=== PATIENT | male | born 1965 | race Caucasian/White ===

== ENCOUNTER 2020-07-21 11:20 | Inpatient (IN) | payer OTHER, SELFPAY ==
[~2020-07-21] VITALS: Ht 177.8 cm; Wt 86.6 kg
[2020-07-21 11:26] VITALS: BP 142/78
--- NOTE | 2020-07-21 11:45 | NUR ---
BLOOD CULTURES AND BINU SWAB COLLECTED, WALKED TO LAB AND LEFT WITH PÉREZ
--- NOTE | 2020-07-21 11:50 | NUR ---
54 Y/O M BIB SELF C/O SHORTNESS OF BREATH X 3 DAYS. PT STATED HE TESTED (+) COVID ON 07/10 AND WAS RECOMMENDED BY HIS PRIMARY CARE DOCTOR TO GET SEEN AT THE ER. PT STATES AT 1030AM 07/21, THE SHORTNESS OF BREATH WORSEN. PT ALSO STATES 8/10 HEADACHE X 2 DAYS THAT IS PUSHING/DULL, CONSTANT. PT DENIES COUGH, CHEST PAIN, FEVER, CHILLS, DIZZINESS. LUNG SOUNDS CLEAR BILATERALLY. PT PLACED IN POSITION OF COMFORT, BED LOCKED AT LOWEST POSITION AND SIDE RAILS X2. CALL LIGHT WITHIN REACH. PMH: DENIES NKA MEDS: DENIES SX: DENIES
--- NOTE | 2020-07-21 12:20 | NUR ---
ERMD AT BEDSIDE
[2020-07-21] MEDS ORDERED: KETOROLAC 30 MG/ML VIAL IVP ONE (12:25)
[2020-07-21 12:27] LABS: BASOPHILS % (AUTO) 0.1 % (0.0-2.0); EOSINOPHILS % (AUTO) 0.4 % (0.0-4.0); HEMATOCRIT 45.6 % (36-52); HEMOGLOBIN 15.6 g/dL (12.0-18.0); LYMPHOCYTES # (AUTO) 0.8 K/uL (2.0-11.5); LYMPHOCYTES % (AUTO) 9.4 % (20.5-51.1); MEAN CORPUSCULAR HEMOGLOBIN 30 pg (27-31); MEAN CORPUSCULAR HGB CONC 34 g/dL (33-37); MEAN CORPUSCULAR VOLUME 88.6 fL (80-94); MONOCYTES # (AUTO) 0.4 K/uL (0.8-1.0); NEUTROPHILS # (AUTO) 7.1 K/uL (1.8-7.7); NEUTROPHILS % (AUTO) 85.1 % (42.2-75.2); PLATELET COUNT (AUTO) 366 K/uL (140-450); RED BLOOD CELL COUNT(AUTO) 5.15 MIL/uL (4.20-6.10); RED CELL DISTRIBUTION WIDTH 12.8 % (11.6-13.7); WHITE BLOOD COUNT (AUTO) 8.4 K/uL (4.8-10.8)
[2020-07-21] MEDS ORDERED: NACL 0.9% 1,000 ML IV ONE (12:30)
[2020-07-21 12:48] LABS: ALBUMIN 2.5 g/dL (3.4-5.0); ANION GAP 16.5 (8-16); CARBON DIOXIDE 25.9 mmol/L (21-32); POTASSIUM 3.4 mmol/L (3.5-5.1); TOTAL BILIRUBIN 1.2 mg/dL (0.0-1.0)
--- NOTE | 2020-07-21 13:00 | NUR ---
PT RESTING IN BED WITH NO OBVIOUS DISTRESS. PT PROVIDED WITH WATER CUP. EQUAL CHEST RISE AND FALL. VSS. BED LOCKED AT LOWEST POSITION WITH SIDE RAILS X2. CALL LIGHT WITHIN REACH AND NOTIFIED TO UTILIZE IF SOB WORSENS.
[2020-07-21] MEDS ORDERED: ONDANSETRON 4 MG/2 ML VIAL IM/IVP PRN (13:25)
[2020-07-21] MEDS ORDERED: guaiFENesin DM 200/20 MG-10 ML 10 ML UDC PO PRN (13:25)
[2020-07-21] MEDS ORDERED: HYDROcodone/APAP 7.5/325 MG 1 TAB PO PRN (13:25)
[2020-07-21] MEDS ORDERED: ACETAMINOPHEN 325 MG TAB PO PRN (13:25)
[2020-07-21] MEDS ORDERED: ALBUTEROL HFA MDI 90 MCG/ACTUATION 8 GM INH PRN (13:25)
[2020-07-21] MEDS ORDERED: POTASSIUM CHLORIDE 10 MEQ TABER PO PRN (13:25)
--- NOTE | 2020-07-21 14:00 | NUR ---
URINAL PROVIDED AT BEDSIDE PER PATIENT REQUEST
[2020-07-21 14:01] LABS: PROTHROMBIN TIME 10.9 secs (10.8-13.4)
[2020-07-21 14:05] LABS: CHOL/HDL RATIO 5.4 (1-4.5); FREE T4 (FREE THYROXINE) 1.63 ng/dL (0.76-1.46); MAGNESIUM 2.5 mg/dL (1.8-2.4); PHOSPHORUS 2.3 mg/dL (2.5-4.9); THYROID STIMULATING HORMONE 0.46 uIU/mL (0.34-3.74)
[2020-07-21] MEDS ORDERED: cefTRIAXone 1,000 MG VIAL ONE (15:05)
[2020-07-21] MEDS: NACL 0.9% 1,000 ML IV SCH (15:10)
--- NOTE | 2020-07-21 15:45 | NUR ---
MRSA SWAB AND URINE COLLECTED AND WALKED TO LAB. LEFT WITH MARIE LUNSFORD TECH
--- NOTE | 2020-07-21 15:52 | NUR ---
ARASELI MACK: FAXED ORDER FOR HOME O2 TO [facility] [phone] FAX [phone]. SPOKE TO ROGERS AT [facility] SHE IS WORKING ON THE ORDER AND THE HOME O2 WILL BE DELIVERED TODAY. Addendum: 07/21/20 at 1708 by Yuli Griffin CM ARASELI MACK: FOLLOWED UP WITH [facility] [phone] THEY WERE NOT ABLE TO GET IN CONTACT WITH THE SHEET CUTTING OPERATOR PROVIDED THEM WITH THE ED NUMBER. Addendum: 07/21/20 at 170 by Yuli Griffin CM ARASELI MACK: NOTIFIED ED Addendum: 07/22/20 at 1234 by Yuli Griffin CM ARASELI DUNLAPNER: RECEIVED VOICEMAIL THAT [facility] COULD NOT PROVIDE OXYGEN FOR PATIENT DUE LIMITED AMOUNT. CONTACTED [facility], [facility], AND [facility] THEY ARE ALL NOT CONTRACTED WITH PATIENTS INSURANCE Addendum: 07/26/20 at 1405 by Yuli Griffin CM ARASELI MACK: SPOKE TO PENNIE FROM [facility] THIS PATIENTS INSURANCE UNFORTUNATELY DOES NOT COVER THE EXPENSES FOR HOME O2. THIS WILL HAVE TO BE HAHN PAY. SPOKE TO PATIENTS SHE IS GOING TO TALK TO DISCUSS WITH HER AND CONTACT ME BACK. Addendum: 07/26/20 at 1433 by Yuli Griffin CM ARASELI COMBER SETTER: SPOKE TO PATIENTS HEIDI BERTRAND [phone] SHE AND HER CAN NOT PAY OUT OF POCKET AT THIS TIME FOR THE HOME O2. SHE STATED THAT HERSELF AND BOTH ARE NOT WORKING NOW. Addendum: 07/26/20 at 1630 by Lyudmila Carter CM CONTACTED [facility] AT [phone], OPT2 OPT 2, EVERY TIME GETS TRANSFERRED TO A LIVE AGENT THE CALL GOT CUT OFF X4. CONTACTED [facility] AGAIN AT [phone] OPT 2 OPT 2, TRANSFERRED TO [facility], ABLE TO SPEAK TO FERMÍN, HE STATED HE HAS TO TRANSFER ME TO BENEFITS. GOT TRANSFERRED AND CALL GOT CUT OFF AGAIN. CONTACTED [facility] AGAIN, ABLE TO TO SPEAK TO BECKY Watts, PROVIDED HIM OF ALL INFORMATION NEEDED. HE STATED BEFORE THEY COULD START THE PROCESS THEY NEED THE CPT CODE AND DIAGNOSIS FOR O2. PROVIDED HIM OF THE CODES, HE STATED THERE WILL BE NO NEED FOR PRIOR AUTH IF COSTS IS NOT MORE THAN $500. I ASKED HIM IF THEY HAVE A CONTRACTED [employer] SO I CAN SEND THE REQUEST. HE STATED WITH THAT HE NEEDS TO TRANSFER ME TO BENEFITS. INFORMED HIM THAT I CALLED SO MANY TIMES AND THE CALLS HAD BEEN DROPPED. HE STATED HE WILL TRANSFER ME TO A LIVE AGENT WHICH THE CALL GOT DROPPED AGAIN. CONTACTED [facility] AGAIN, ABLE TO SPEAK TO GRIS ESTHELA, SHE STATED THERE IS NO PRE CERTIFICATION FOR 02 IS THE COST FOR RENTAL IS $500 OR LESS. I ASKED HER IF THE PLAN COVERS THE O2 SHE STATED SHE HAS TO TRANSFER ME TO BENEFITS. INFORMED HER THAT I HAD TRY DOING THAT FOR 6X AND THE CALL GET DROPPED ALL THE TIME. SHE STATED SHE WILL TRANSFER ME TO A LIVE AGENT AND HAVE BEEN ON HOLD FOR 49 MINS AND 50 SEC AND THE CALL DROPPED. Addendum: 07/27/20 at 0832 by Lyudmila Carter CM SPOKE TO RT GRACIA REGARDING O2 TITRATION, SHE STATED SHE WILL RELAY THE MESSAGE TO RT MARTIN AND RT STEPHEN. WILL FOLLOW UP. Addendum: 07/27/20 at 1138 by Lyudmila Carter CM 0830: CONTACTED [facility] AT [phone], ABLE TO SPEAK TO BELL LUU PROVIDED ME OF THE NUMBER [phone] CALL FOR BENEFITS. CONTACTED THE PROVIDED NUMBER, ABLE TO SPEAK BRANDI. PER BRANDI, PATIENT IS COVERED 90% FOR O2. HE ALSO STATED THAT THEY ARE CONTRACTED WITH [facility], [facility]. CONTACTED [facility] AT [phone], ABLE TO SPEAK TO BRICE. PER BRICE TO GO AHEAD AND SEND REFERRAL TO [phone] FOR THEM TO RUN ELIGIBILITY. CONTACTED TAMIE OF [facility] [employer] [employer] [facility] AT [phone]. PER TAMIE THEY ARE CONTRACTED WITH [facility] BUT DEPENDING ON THE GROUP NUMBER. PROVIDED HER WITH THE GROUP NUMBER AND SHE STATED PROBABLY NOT HOWEVER REQUESTED TO SEND IT TO [phone] FOR THEM TO DOUBLE CHECK ELIGIBILITY. ORDER SENT TO [facility] AND [facility]. 1114: RECEIVED A CALL FROM BRICE OF [facility], STATING THEY ARE NOT ABLE TO PROVIDE TO THIS PATIENT DUE TO IT WAS NOT CAPITATED. Addendum: 07/27/20 at 1217 by Lyudmila Carter CM PER LAURA [phone] OF [facility] [employer], THEY ARE NOT CONTRACTED WITH [facility]. PER SULTANA [phone] OF [facility] [place], THEY ARE NOT CONTRACTED WITH [facility]. PER SHELLI [phone] OF [employer] [place], THEY ARE NOT CONTRACTED WITH [facility]. REFERRAL SENT TO [facility] [phone]. WILL FOLLOW UP. Addendum: 07/27/20 at 1230 by Lyudmila Carter CM PER MELISSA [phone] SONU OJEDA, THEY ARE NOT DOING NELA AT THIS TIME BUT WILL CLARIFY THIS WITH MANAGEMENT AND WILL CALL ME BACK. Addendum: 07/27/20 at 1308 by Lyudmila Carter CM PER JACQUE, THEY ARE NOT ABLE TO PROVIDE OXYGEN FOR THE PATIENT DUE TO PLAN IS NOT CAPITATED WITH THEM. Addendum: 07/27/20 at 1318 by Lyudmila Carter PER [facility], THEY CAN ONLY DO NELA (GOOD FOR 3 MONTHS) FOR SENIORS ONLY WITH QUALIFYING SATS. Addendum: 07/27/20 at 1321 by Lyudmila Carter PER [facility]IS[facility], THEY CAN ONLY DO NELA WITH SENIOR PATIENTS WITH QUALIFYING SATS OF 88% AND BELOW AND ONLY FOR 3 MONTHS. Addendum: 07/27/20 at 1337 by Lyudmila Carter PER AARON ARNOLD, PATIENT DE-SATTED TO 88-89% AND PLACED PATIENT BACK TO O2 AT 6 LPM/NC. Addendum: 07/27/20 at 1338 by Lyudmila Carter CM O2 SAT WENT UP TO 92% ON 6 LPM. Addendum: 07/27/20 at 1358 by Lyudmila Carter CM PER [facility] AT [phone], BECAUSE PATIENT LIVES IN [place] THIS WILL BE UNDER THEIR [facility] HOWEVER HE WILL FIND OUT WHAT IS THE STATUS OF THE REQUEST. I WAS PLACED ON HOLD AND THE CALL GOT DROPPED. CONTACTED [facility] AGAIN, CALL GOT CUT OFF AGAIN. WILL FOLLOW UP. Addendum: 07/27/20 at 1405 by Yuli Griffin CM ARASELI MACK: FOLLOWED UP WITH [facility] LOCATION [phone]. SHE STATED THAT THEY DIDN'T RECEIVE THE ORDER BECAUSE IT WAS FAXED TO THEIR [place] LOCATION. FAXED TO CORRECT NUMBER [phone] Addendum: 07/27/20 at 1520 by Yuli Griffin CM ARASELI MACK: RECEIVED A CALL BACK FROM NASH FROM [facility] THEY ARE NOT ABLE TO PROVIDE OXYGEN FOR THIS PATIENT BECAUSE OF THE INCREASE OF ORDERS FOR OXYGEN AND THEY ARE NOT CONTRACTED WELL. Addendum: 07/27/20 at 1626 by Sindhu Garces CM DC Planning: MELVIN contacted [phone]) MELVIN spoke to Leisa; MELVIN alerted Leisa of the difficulties in finding an accepting oxygen supplier. Leisa suggested that MELVIN got to [employer] and look up contracted providers. MELVIN printed list of DME providers and gave list to DC program planner. MELVIN alerted Leisa that several of the companies on the list had already alerted that they are not contracted with pt's insurance. Leisa stated that it would be "patient's responsibility if there are no contracted providers to provide pt with oxygen". Leisa also stated that if the hospital found a non-contracted provider to supply the oxygen the pt could call the insurance to see if they would provide the oxygen company with a approval for the oxygen. Leisa states that the pt could submit an appeal due to no participating provider able to supply the oxygen. MELVIN will update CHYNA/DC program planner. Addendum: 07/28/20 at 1046 by Yuli Griffin CM DC COMBER SETTER: CONTACTED THE DME COMPANIES THAT WAS PROVIDED TO ME BY MELVIN. [employer], [employer], [employer], [employer], [employer], AND [facility]. THESE PROVIDERS CAN NOT PROVIDE OXYGEN FOR THIS PATIENT. Addendum: 07/28/20 at 1049 by Yuli Griffin CM ARASELI MACK: RECEIVED A CALL FROM PATIENTS LAST NIGHT REGARDING CONCERNS OF THE CARE OF HER . SHE STATED THAT SHE HAS BEEN SITTING AT THE WINDOW AND NO ONE HAS CAME TO CHECK UP ON HER AND SHE WAS CONCERNED THAT HE DID NOT HAVE ANY OXYGEN AT THE TIME. I NOTIFIED HER THAT I WILL RELAY THE MESSAGE TO PATIENTS AARON BRICENO. CALLED RN TO NOTIFY HIM. PATIENTS ALSO STATED THAT THEY ARE STILL NOT ABLE TO PAY FOR THE HOME O2 AND SHE DOES NOT WANT HER DISCHARGED UNTIL HE NO LONGER NEEDS OXYGEN. Addendum: 07/29/20 at 1413 by Michelle Ayala RN DC PLANNING: RECEIVED A CALL FROM PT'S DAUGHTER [phone] SPOKE WITH KAT REGARDING DISCHARGE HOME AND EXPLAINED PT IS SATING 93% WITH ROOM AIR , PT IS VERY ANXIOUS AND WORRIED THAT HIS O2 SAT MIGHT DROP AND NEEDS HOME O2. PER DAUGHTER WILLING TO PAY FOR HOME O2 CONTACTED [facility] SPOKE WITH PENNIE , DAUGHTER PAID AND WILL BE DELIVERED AT HOME. ONCE IT DELIVERED PT'S WILL BRING THE O2 TO THE HOSPITAL. CM TO FOLLOW
[2020-07-21 16:03] LABS: APPEARANCE,URINE CLEAR (CLEAR); BILIRUBIN,URINE 2+ (NEGATIVE); BLOOD, URINE NEGATIVE (NEGATIVE); COLOR,URINE DARK YELLOW (YELLOW); LEUKOCYTE ESTERASE ,URINE NEGATIVE (NEGATIVE); NITRITE, URINE NEGATIVE (NEGATIVE); UGLUCOSE TRACE (NEGATIVE)
[2020-07-21 16:18] LABS: BARBITURATE, URINE NEGATIVE ng/ml (NEG <=200); BENZODIAZEPINE, URINE NEGATIVE ng/mL (NEG <=200); CANNABINOID, URINE NEGATIVE ng/mL (NEG <=50); COCAINE, URINE NEGATIVE ng/mL (NEG <=300); OPIATE, URINE NEGATIVE ng/mL (NEG <=2000); PHENCYCLIDINE SCREEN,URINE NEGATIVE ng/mL (NEG <=25)
[2020-07-21] MEDS ORDERED: REMDESIVIR (EUA) 200 MG in NACL 0.9% 100 ML IV SCH (17:00)
[2020-07-21] MEDS ORDERED: remdesivir CLINICAL MONITORING 1 EA MISC MC PRN (17:00)
[2020-07-21 17:02] LABS: COARSE GRANULAR CASTS,URINE 0-10 /LPF (None Seen); RBC,URINE 0-5 /HPF (0-5); WBC,URINE 0-5 /HPF (0-5)
--- NOTE | 2020-07-21 17:30 | NUR ---
PT REQUESTED TO USE THE TOILET TO HAVE A BOWEL MOVEMENT. PT ASSISTED ONTO BEDPAN SUPPORTED BY CHAIR AND DISCONNECTED FROM ESL INSTRUCTIONAL ASSISTANT WITH NO INCIDENT. PT MAINTAINED ON NASAL CANNULA @ 2L/MIN WITH STABLE VITAL SIGNS THROUGHOUT BOWEL MOVEMENT. PT STATED HE COULDN'T HAVE A BOWEL MOVEMENT. PT ASSISTED BACK ONTO BED AND RECONNECTED TO ESL INSTRUCTIONAL ASSISTANT WITH NO INCIDENT. BED LOCKED AT LOWEST POSITION WITH SIDE RAILS X2. ALL PT NEEDS MET. CALL LIGHT WITHIN REACH.
--- NOTE | 2020-07-21 18:30 | NUR ---
PT RESTING AND ALL PT NEEDS MET AT THIS TIME. PT STATES PAIN REMAINS 2/10 WITH NO REQUEST FOR ADDITIONAL PAIN MEDICATION. VSS. BED LOCKED AT LOWEST POSITION, SIDE RAILS X2. CALL LIGHT WITHIN REACH.
--- NOTE | 2020-07-21 18:45 | NUR ---
PT STATES HE IS NO LONGER EXPERIENCING HEADACHE PAIN. PT RATES PAIN 0/10
--- NOTE | 2020-07-21 18:55 | NUR ---
DINNER MEAL TRAY AT BEDSIDE
--- NOTE | 2020-07-21 19:15 | NUR ---
RECEVIED REPORT FROM AARON SIMMONS. CONT OF CARE AT THIS TIME.
--- NOTE | 2020-07-21 19:15 | NUR ---
PT COMPLETED 30% OF MEAL, REQUESTED TO LEAVE SALAD, FRUIT CUP AND BREAD AT BEDSIDE. EQUAL CHEST RISE AND FALL. ALL PT NEEDS AT MET. CALL LIGHT WITHIN REACH.
--- NOTE | 2020-07-21 19:20 | NUR ---
REPORT GIVEN TO AARON LOZANO. TRANSFER OF CARE AT THIS TIME.
--- NOTE | 2020-07-21 20:00 | NUR ---
PTS UPDATED ON PLAN OF CARE. CLAYTON CHENEY
[2020-07-21] MEDS ORDERED: ZOLPIDEM 5 MG TAB PO PRN (21:00)
--- NOTE | 2020-07-22 | NUR ---
PT SLEEPING. NO RESP DISTRESS NOTED. EQUAL CHEST RISE AND FALL.
[2020-07-22 05:55] LABS: BASOPHILS % (AUTO) 0.4 % (0.0-2.0); EOSINOPHILS # (AUTO) 0.1 K/uL (0-0.4); EOSINOPHILS % (AUTO) 0.7 % (0.0-4.0); HEMATOCRIT 40.6 % (36-52); HEMOGLOBIN 13.9 g/dL (12.0-18.0); LYMPHOCYTES # (AUTO) 0.9 K/uL (2.0-11.5); LYMPHOCYTES % (AUTO) 10.9 % (20.5-51.1); MEAN CORPUSCULAR HEMOGLOBIN 30 pg (27-31); MEAN CORPUSCULAR HGB CONC 34 g/dL (33-37); MEAN CORPUSCULAR VOLUME 87.6 fL (80-94); MONOCYTES # (AUTO) 0.5 K/uL (0.8-1.0); MONOCYTES % (AUTO) 6.5 % (1.7-9.3); NEUTROPHILS # (AUTO) 6.6 K/uL (1.8-7.7); NEUTROPHILS % (AUTO) 81.5 % (42.2-75.2); PLATELET COUNT (AUTO) 346 K/uL (140-450); RED BLOOD CELL COUNT(AUTO) 4.64 MIL/uL (4.20-6.10); RED CELL DISTRIBUTION WIDTH 12.7 % (11.6-13.7); WHITE BLOOD COUNT (AUTO) 8.1 K/uL (4.8-10.8)
--- NOTE | 2020-07-22 05:56 | NUR ---
LAB AT BEDSIDE.
[2020-07-22] MEDS: NACL 0.9% 1,000 ML IV SCH ×2 (06:12→22:41)
--- NOTE | 2020-07-22 06:12 | NUR ---
INCREASED 02 TO 4.5L NC AND PT IS SATTING AT 92%.
[2020-07-22 06:23] LABS: ALBUMIN 2.2 g/dL (3.4-5.0); ANION GAP 11.5 (8-16); CARBON DIOXIDE 28.1 mmol/L (21-32); CREATININE 0.9 mg/dL (0.6-1.3); POTASSIUM 3.6 mmol/L (3.5-5.1)
--- NOTE | 2020-07-22 07:18 | NUR ---
gave report to clara tucker. transfer of care at this time.
[2020-07-22 08:08] LABS: T4 (THYROXINE) 9.5 ug/dL (4.5-12.0)
--- NOTE | 2020-07-22 08:15 | NUR ---
PATIENT HAS BEEN SCREENED AND CATEGORIZED MODERATE NUTRITION RISK. PATIENT WILL BE SEEN WITHIN 3-5 DAYS OF ADMISSION. 07/24/20 07/26/[address]
[2020-07-22] MEDS ORDERED: COMMUNICATION ORDER MC SCH (09:00)
[2020-07-22] MEDS ORDERED: AZITHROMYCIN 250 MG TAB PO SCH (09:00)
[2020-07-22] MEDS: PANTOPRAZOLE 40 MG TABEC PO SCH (09:17)
[2020-07-22] MEDS: ASCORBIC ACID 500 MG TAB PO SCH (09:17)
--- NOTE | 2020-07-22 10:54 | NUR ---
SOCIAL WORK NOTE: Patient's Orientation Unable To Assess Information Provided By ARMANDDEREK CRAWLEY - Comments SW WAS UNABLE TO MEET PATIENT AT BEDSIDE DUE TO MEDICAL CONDITION. SW COMPLETED ASSESSMENT WITH PATIENT'S . Finger Cobbler, Realtionship and Phone Number HEIDI HULL [phone] [facility] Power of Concaver No Does Patient Have a POLST No Identifying Problems No Social Work Triggers Is A Social Work Consult Needed No Mandate Report Filed No Explanation Of Identifying Problems PATIENT IS A 54-YEAR-OLD MALE ADMITTED FOR COVID AND HYPOXIA. PATIENT HAS NO PMHX. PATIENT'S REPORTED THAT PATIENT HAS NO HISTORY OF SUBSTANCE ABUSE OR MENTAL HEALTH. Admitted From Home Pre-Admission Level Of Functioning Status Independent/Ambulatory Prior Resources/Services Used In Last 12 Months No Prior Resources Used Prior DME No Prior DME Used Dialysis Comments N/A Living Situation House Lives With Spouse Patient Had Caregiver No Home Support No Caregiver Issues Financial Issues No Known Financial Issue Referral To The Financial Counselor Needed No Factors/Needs No D/C Needs Identified Pt/Rep Participated In Discharge Plan Yes Patient/Family Agress With Discharge Plan Yes Discharge Plan Comments TENTATIVE DISCHARGE PLAN IS FOR PATIENT TO RETURN HOME. DC Plan Status Initiated Addendum: 07/29/20 at 1428 by Josh Marcelino ELYSSA CONTACTED HEIDI CRAWLEY - - [phone] REGARDING DISCHARGE PLAN. ARMANDKRISTIANDAMIAN STATED THAT SHE WOULD PICK PATIENT UP ONCE OXYGEN IS RECEIVED AT HOME.
[2020-07-22] MEDS: REMDESIVIR (EUA) 100 MG in NACL 0.9% 100 ML IV SCH (13:45)
--- NOTE | 2020-07-22 13:53 | NUR ---
Stable Requiring 02 at 4L NC Mild SOB and increased RR present. Antivirals have been started. Tolorating well. Have spoken to family about condition and plan and they are in agreement. To be monitored and placed on floor when bed available.
[2020-07-22] MEDS ORDERED: cefTRIAXone 1,000 MG VIAL ONE (14:29)
--- NOTE | 2020-07-22 19:30 | NUR ---
RECEIVED REPORT FROM TOM WALKER FOR CONTINUITY OF CARE.
--- NOTE | 2020-07-22 20:02 | NUR ---
PT OBSERVED LAYING IN BED. O2 SAT AT 92% VIA NC AT 6L OF OXYGEN. VSS, ATE 100% OF DINNER WITH NO DIFFICULTY. ON CARDIAC MONITORING, BP MONITORING AND PULSE OXIMETRY. EMPTIED URINAL WITH 500 ML OF DARK YELLOW URINE. CALL LIGHT LEFT WITHIN REACH AND ALL NEEDS MEET PRIOR TO EXIT. WILL CONTINUE TO MONITOR.
--- NOTE | 2020-07-22 22:15 | NUR ---
Patient will be admitted to care of DR. WALKER. Admited to TELEMETRY. Will go to room 106-B. Belongings list completed. Report GIVEN TO MANE WALKER FOR CONTINUITY OF CARE. ALL COVID PRECAUTIONS IN PLACE. PT WEARING A MASK. ALL BELONGINGS SENT WITH PT.
--- NOTE | 2020-07-22 22:30 | NUR ---
RECEIVED PT FROM ED NURSE FOR CONTINUITY OF CARE. PT ARRIVED VIA GURNEY AND WALKED TO BED. PT IS AMBULATORY WITH STEADY GAIT. AWAKE AND ALERT, MACEDONIAN SPEAKING. A&OX4. ON 6L O2 NC WITH O2 SAT AT 90%. BREATHING IS UNLABORED. SKIN IS WARM, DRY, AND INTACT. IV IS IN THE LEFT AC 20 GAUGE RUNNING NS AT 60 ML PER HOUR PER ORDER. DROPLET PRECAUTION FOR COVID POSITIVE. PLAN OF CARE DISCUSSED.
--- NOTE | 2020-07-22 23:30 | NUR ---
FULL ASSESSMENT WAS COMPLETED ON PT. PT IS STABLE AT THIS TIME. NO DISTRESS NOTED. PT WAS ABLE TO CONFIRM MEDICAL HISTORY WITH ME.
[2020-07-23] VITALS: BP 110/70
--- NOTE | 2020-07-23 01:30 | NUR ---
PT RECEIVED A SANDWICH, JELLO, AND PUDDING REQUESTED. PT ATE ALL OF FOOD AND DRANK WATER. IV FLUIDS ARE INFUSING AND PT IS STABLE. BED IS IN THE LOWEST POSITION AND CALL LIGHT IS WITHIN REACH. BATHROOM LIGHT ON FOR VISIBILITY.
--- NOTE | 2020-07-23 03:36 | NUR ---
ROUNDED ON PT. HE IS ASLEEP IN SEMI FOWLERS POSITION. CHEST RISE AND FALL IS SYMMETRICAL. BREATHING IS UNLABORED. PT HAS 6L O2 NC. IV FLUIDS ARE INFUSING AND IV IS PATENT. NO SIGNS OF INFILTRATION. WILL CONTINUE TO MONITOR.
[2020-07-23 04:00] VITALS: BP 119/79
--- NOTE | 2020-07-23 05:23 | NUR ---
PT PULLED OFF TELE MONITOR AND NASAL CANNULA DURING SLEEP. BOTH WERE PLACED BACK ON PT. BREATHING IS UNLABORED. PT IS STABLE. PT IS ON TELE MONITORING. BED IS IN THE LOWEST POSITION AND PT STATES HE IS OKAY AT THIS TIME.
[2020-07-23 06:27] LABS: BASOPHILS % (AUTO) 0.1 % (0.0-2.0); EOSINOPHILS % (AUTO) 0.1 % (0.0-4.0); HEMATOCRIT 39.3 % (36-52); HEMOGLOBIN 13.4 g/dL (12.0-18.0); LYMPHOCYTES # (AUTO) 0.7 K/uL (2.0-11.5); LYMPHOCYTES % (AUTO) 7.8 % (20.5-51.1); MEAN CORPUSCULAR HEMOGLOBIN 30 pg (27-31); MEAN CORPUSCULAR HGB CONC 34 g/dL (33-37); MEAN CORPUSCULAR VOLUME 87.6 fL (80-94); MONOCYTES # (AUTO) 0.7 K/uL (0.8-1.0); MONOCYTES % (AUTO) 8.5 % (1.7-9.3); NEUTROPHILS # (AUTO) 7.3 K/uL (1.8-7.7); NEUTROPHILS % (AUTO) 83.5 % (42.2-75.2); PLATELET COUNT (AUTO) 355 K/uL (140-450); RED BLOOD CELL COUNT(AUTO) 4.49 MIL/uL (4.20-6.10); WHITE BLOOD COUNT (AUTO) 8.7 K/uL (4.8-10.8)
--- NOTE | 2020-07-23 07:15 | NUR ---
ENDORSED PT TO DAY SHIFT NURSE FOR CONTINUITY OF CARE. PT IS STABLE AT THIS TIME. PLAN OF CARE DISCUSSED.
[2020-07-23 07:38] LABS: ANION GAP 13.2 (8-16); CARBON DIOXIDE 26.9 mmol/L (21-32); CREATININE 0.9 mg/dL (0.6-1.3); POTASSIUM 4.1 mmol/L (3.5-5.1); TOTAL BILIRUBIN 0.7 mg/dL (0.0-1.0)
[2020-07-23 08:00] VITALS: BP 113/71
[2020-07-23] MEDS: ASCORBIC ACID 500 MG TAB PO SCH (09:00)
[2020-07-23] MEDS: PANTOPRAZOLE 40 MG TABEC PO SCH (09:00)
--- NOTE | 2020-07-23 09:15 | NUR ---
PT STATES NO PAIN AND TOLERATING NC 6 LPM. PT LYING SEMI FOWLERS.
--- NOTE | 2020-07-23 11:35 | NUR ---
PT IN STATES NO PAIN, HAS A PRODUCTIVE COUGH W/ CLEAR AND THICK SECRETIONS. PT TOLERATING NC 6 LPM.
[2020-07-23 12:00] VITALS: BP 110/83
--- NOTE | 2020-07-23 13:24 | NUR ---
CALLED [facility] FOR CONVALESCENT PLASMA, HOWEVER STATED THAT THERE HAS BEEN NO DELIVERY YET.
[2020-07-23] MEDS: NACL 0.9% 1,000 ML IV SCH (14:26)
--- NOTE | 2020-07-23 15:11 | NUR ---
PT STATED NO PAIN AND KEPT RESTING COMFORTABLY IN BED. TOLERATING NC 6 LPM.
[2020-07-23 16:00] VITALS: BP 89/58
[2020-07-23] MEDS: REMDESIVIR (EUA) 100 MG in NACL 0.9% 100 ML IV SCH (17:32)
--- NOTE | 2020-07-23 17:48 | NUR ---
PT STATED NO PAIN AND TOLERATING NC 2 LPM. PT STABLE AND WILL ENDORSE CARE TO HOSPITALIST PHYSICIAN RN.
[2020-07-23] MEDS: DOCUSATE SODIUM 100 MG GELCAP PO PRN (17:51)
--- NOTE | 2020-07-23 19:30 | NUR ---
RECEIVED REPORT FROM DAY SHIFT NURSE. PT IN BED RESTING WITH HOB ELEVATED. RESPIRATIONS EVEN AND UNLABORED TO O2 6LPM/NC. PT NOT IN DISTRESS. ABDOMEN IS SOFT AND NON-TENDER, ACTIVE BOWEL SOUNDS NOTED. SKIN IS WARM, DRY, AND INTACT. NO EDEMA NOTED. PT WITH IV ACCESS ON LEFT AC G20 PATENT AND INTACT, IVF INFUSING WELL. PT DENIES ANY PAIN OR DISCOMFORT AT THIS TIME. NO REQUESTS MADE. POC DISCUSSED, PT VERBALIZED UNDERSTANDING. SAFETY MEASURES IN PLACE. CALL LIGHT WITHIN REACH. WILL CONTINUE TO MONITOR.
[2020-07-23 20:00] VITALS: BP 114/74
--- NOTE | 2020-07-23 20:28 | NUR ---
VS STABLE. SCHEDULED MEDS GIVEN ORDERED. O2 IN PLACE. PT DENIES ANY SOB. NO REQUESTS MADE AT THIS TIME. SAFETY MEASURES IN PLACE. CALL LIGHT WITHIN REACH. WILL CONTINUE TO MONITOR. Addendum: 07/23/20 at 2320 by Owen Hall RN O2 TITRATED DOWN TO 5LPM/NC PT TOLERATING WELL. O2 SAT 95%.
--- NOTE | 2020-07-23 22:14 | NUR ---
PT IN BED WATCHING TV. O2 IN PLACE. PT NOT IN DISTRESS. DENIES ANY PAIN OR DISCOMFORT. NO REQUESTS MADE. PT KEPT COMFORTABLE. CALL LIGHT WITHIN REACH. WILL CONTINUE TO MONITOR.
[2020-07-24] VITALS: BP 123/76
--- NOTE | 2020-07-24 00:16 | NUR ---
VS STABLE. PT IN BED RESTING. O2 IN PLACE. CURRENT O2 SAT 92%. NO REQUESTS MADE AT THIS TIME. WILL CONTINUE TO MONITOR.
--- NOTE | 2020-07-24 02:01 | NUR ---
PT ASLEEP. O2 IN PLACE. NO S/SX OF DISTRESS. VISIBLE CHEST RISE AND FALL. PT KEPT COMFORTABLE. CALL LIGHT WITHIN REACH. WILL CONTINUE TO MONITOR.
[2020-07-24 04:00] VITALS: BP 107/72
--- NOTE | 2020-07-24 04:15 | NUR ---
VS STABLE. PT IN BED. O2 IN PLACE. NO S/SX OF DISTRESS NOTED. PT DENIES ANY PAIN OR DISCOMFORT AT THIS TIME. NO REQUESTS MADE. CALL LIGHT WITHIN REACH, WILL CONTINUE TO MONITOR.
[2020-07-24 07:25] LABS: BASOPHILS % (AUTO) 0.2 % (0.0-2.0); EOSINOPHILS % (AUTO) 0.1 % (0.0-4.0); HEMATOCRIT 39.7 % (36-52); HEMOGLOBIN 13.5 g/dL (12.0-18.0); LYMPHOCYTES # (AUTO) 0.8 K/uL (2.0-11.5); LYMPHOCYTES % (AUTO) 8.1 % (20.5-51.1); MEAN CORPUSCULAR HEMOGLOBIN 30 pg (27-31); MEAN CORPUSCULAR HGB CONC 34 g/dL (33-37); MEAN CORPUSCULAR VOLUME 88.2 fL (80-94); MONOCYTES # (AUTO) 0.9 K/uL (0.8-1.0); MONOCYTES % (AUTO) 9.3 % (1.7-9.3); NEUTROPHILS # (AUTO) 8.4 K/uL (1.8-7.7); NEUTROPHILS % (AUTO) 82.3 % (42.2-75.2); PLATELET COUNT (AUTO) 435 K/uL (140-450); RED CELL DISTRIBUTION WIDTH 12.9 % (11.6-13.7); WHITE BLOOD COUNT (AUTO) 10.2 K/uL (4.8-10.8)
--- NOTE | 2020-07-24 07:35 | NUR ---
ENDORSED TO DAY SHIFT NURSE FOR CONTINUITY OF CARE.
--- NOTE | 2020-07-24 07:37 | NUR ---
RECEIVED REPORT FROM NIGHT NURSE PATIENT IS AAOX4 ON 5LPM OXYGEN VIA NC SATURATION AT 92%, AMBULATORY, SKIN INTACT, IV INTACT AND PATENT ON LEFT AC. NO DISTRESS NOTED, SAFETY MEASURES IN PLACE AND CALL LIGHT WITHIN REACH. WILL CONTINUE TO MONITOR.
[2020-07-24 07:52] LABS: ALBUMIN 2.1 g/dL (3.4-5.0); ANION GAP 11.9 (8-16); CARBON DIOXIDE 27.1 mmol/L (21-32); CREATININE 0.9 mg/dL (0.6-1.3); TOTAL BILIRUBIN 0.7 mg/dL (0.0-1.0)
[2020-07-24 08:00] VITALS: BP 123/79
[2020-07-24] MEDS: NACL 0.9% 1,000 ML IV SCH (08:05)
[2020-07-24] MEDS: ASCORBIC ACID 500 MG TAB PO SCH (09:51)
[2020-07-24] MEDS: PANTOPRAZOLE 40 MG TABEC PO SCH (09:52)
--- NOTE | 2020-07-24 09:53 | NUR ---
MEDICATION DUE GIVEN VITAL SIGNS CHECK PRIOR TO MEDICATION BP 123/709 IA 97 AND SATURATION AT 95%. NO DISTRESS NOTED PATIE NT ABLE TO SLEEP WELL AND NO LABORED BREATHING NOTED.
--- NOTE | 2020-07-24 11:30 | NUR ---
PATIENT IV OUT
[2020-07-24 12:00] VITALS: BP 99/67
--- NOTE | 2020-07-24 13:00 | NUR ---
PATIENT IV INSERTED ON THE LEFT HAND AND GAVE INCENTIVE SPIROMETRY TO HELP WITH BREATHING.
--- NOTE | 2020-07-24 15:00 | NUR ---
MADE ROUND AT THIS TIME NO DISTRESS NOTED AND DENIES PAIN OXYGEN SATURATION AT 93%
[2020-07-24 16:00] VITALS: BP 107/71
[2020-07-24] MEDS: REMDESIVIR (EUA) 100 MG in NACL 0.9% 100 ML IV SCH (16:41)
--- NOTE | 2020-07-24 17:00 | NUR ---
MEDICATION DUE GIVEN INFUSING WELL
--- NOTE | 2020-07-24 19:31 | NUR ---
ENDORSED TO NIGHT NURSE FOR CONTINUITY OF CARE. PT IS STABLE
[2020-07-24 20:00] VITALS: BP 100/67
[2020-07-25] VITALS: BP 115/73
[2020-07-25] MEDS: NACL 0.9% 1,000 ML IV SCH ×2 (01:00→17:25)
[2020-07-25 04:00] VITALS: BP 125/80
--- NOTE | 2020-07-25 06:55 | NUR ---
[facility] REPORTS PLASMA NOT AVAILABLE - . [facility] ASKED FOR DAY RN TO CALL [facility] IN P.M. TO DISCOVER IF [facility] HAS A NEW SHIPMENT IN.
--- NOTE | 2020-07-25 07:18 | NUR ---
RECEIVED REPORT FROM NIGHT NURSE PATIENT IS AAOX4 ON 3LPM NC SATURATION AT 97%, SKIN INTACT, AMBULATORY USES THE URINAL, CONSENT FOR PLASMA DONE, PLASMA NOT GIVEN NO AVAILABLE PLASMA,STILL ON REMDESIVIR. IV INTACT AND PATENT ON LEFT HAND. SAFETY MEASURES IN PLACE AND CALL LIGHT WITHIN REACH.WILL CONTINUE TO MONITOR
[2020-07-25 08:00] VITALS: BP 108/78
[2020-07-25] MEDS: ASCORBIC ACID 500 MG TAB PO SCH (08:52)
[2020-07-25] MEDS: PANTOPRAZOLE 40 MG TABEC PO SCH (08:52)
--- NOTE | 2020-07-25 09:03 | NUR ---
MEDICATION DUE GIVEN CHECK VITAL SIGNS PRIOR TO MEDICATION BP 108/78 OR 71 OXYGEN SATURATION 97%, NO DISTRESS NOTED AND NO LABORED BREATHING NOTED. SAFETY MEASURES IN PLACE AND CALL LIGHT WITHIN REACH. WILL CONTINUE TO MONITOR.
[2020-07-25 12:00] VITALS: BP 103/66
--- NOTE | 2020-07-25 12:00 | NUR ---
CHECK VITAL SIGNS PATIENT IS EATING AND NO LABORED BREATHING NOTED NO DISTRESS NOTED.
[2020-07-25 16:00] VITALS: BP 101/75
[2020-07-25] MEDS: REMDESIVIR (EUA) 100 MG in NACL 0.9% 100 ML IV SCH (16:53)
--- NOTE | 2020-07-25 17:00 | NUR ---
MEDICATION DUE GIVEN NO DISTRESS NOTED AND NO LABORED BREATHING. SAFETY MEASURES IN PLACE AND CALL ;LIGHT WITHIN REACH
--- NOTE | 2020-07-25 19:28 | NUR ---
ENDORSED TO NIGHT NURSE FOR CONTINUITY OF CARE. PT IS STABLE
--- NOTE | 2020-07-25 19:28 | NUR ---
RECEIVED BEDSIDE REPORT FROM DAY SHIFT NURSE. PATIENT IS AWAKE, ALERT, AND COOPERATIVE. RESPIRATION EVEN UNLABORED ON 5L NC O2. NO DISTRESS NOTED. SKIN IS WARM AND DRY. IV PATENT AND INTACT. PLAN OF CARE WAS DISCUSSED. ALL SAFETY MEASURES IN PLACE. BED IS AT LOW POSITION. CALL LIGHT WITHIN REACH. WILL CONTINUE TO MONITOR.
[2020-07-25 20:00] VITALS: BP 106/68
--- NOTE | 2020-07-25 20:25 | NUR ---
ALL SCHEDULED MEDS WERE GIVEN PER ORDER. NO ASE NOTED. WILL CONTINUE TO MONITOR.
--- NOTE | 2020-07-25 21:50 | NUR ---
RT AT BEDSIDE. NO DISTRESS NOTED. WILL CONTINUE TO MONITOR.
[2020-07-26] VITALS: BP 117/81
--- NOTE | 2020-07-26 00:26 | NUR ---
MADE ROUNDS. PATIENT IS SLEEPING RESPIRATION EVEN UNLABORED ON 5L NC O2. NO DISTRESS NOTED. WILL CONTINUE TO MONITOR.
--- NOTE | 2020-07-26 03:16 | NUR ---
MADE ROUNDS. PATIENT IS SLEEPING RESPIRATION EVEN UNLABORED ON 5L NC O2. NO DISTRESS NOTED. WILL CONTINUE TO MONITOR.
[2020-07-26 04:00] VITALS: BP 113/73
--- NOTE | 2020-07-26 07:28 | NUR ---
ENDORSED PATIENT TO DAY SHIFT NURSE FOR CONTINUITY OF CARE.
--- NOTE | 2020-07-26 08:05 | NUR ---
RECEIVED PATIENT IN BED RESTING COMFORTABLY, PRESENTS CALM AND COOPERATIVE, ABLE TO EXPRESS NEEDS. NO C/O OR S/SX OF PAIN OR DISCOMFORT. RESPIRATIONS ARE NON-LABORED. SKIN IS CLEAN, WARM AND DRY TO TOUCH. IV ACCESS IS PATENT, DRY AND INTACT. BED IS LOCKED IN LOWEST POSITION, CALL LIGHT IN REACH. NURSE WILL CONTINUE CARE AND MONITOR FOR CHANGES IN STATUS.
[2020-07-26] MEDS ORDERED: ASPI81CT51 PO (08:27)
[2020-07-26] MEDS ORDERED: ZINC220T4 PO (08:27)
[2020-07-26] MEDS ORDERED: VITC500 PO (08:27)
[2020-07-26] MEDS ORDERED: DEXA6TAB1 PO (08:27)
[2020-07-26] MEDS ORDERED: CHOL400T12 PO (08:27)
[2020-07-26] MEDS: PANTOPRAZOLE 40 MG TABEC PO SCH (08:38)
[2020-07-26] MEDS: ASCORBIC ACID 500 MG TAB PO SCH (08:39)
--- NOTE | 2020-07-26 11:33 | NUR ---
PATIENT RESTING COMFORTABLY, NO C/O PAIN OR DISCOMFORT. RESPIRATIONS NON-LABORED. SKIN IS CLEAN, WARM AND DRY TO TOUCH. IV ACCESS IS PATENT, NO S/SX OF REDNESS OR SWELLING. BED IS LOCKED IN LOWEST POSITION, CALL LIGHT IN REACH. NURSE WILL CONTINUE TO MONITOR FOR CHANGES IN STATUS.
--- NOTE | 2020-07-26 18:30 | NUR ---
07/26/2020 RD INITIAL ASSESSMENT COMPLETED NO NUTRITION RELATED PROBLEM AT THIS TIME [address]A [address] RD
--- NOTE | 2020-07-26 19:02 | NUR ---
PATIENT RESTING COMFORTABLY, NO C/O PAIN OR DISCOMFORT. RESPIRATIONS ARE NON-LABORED. SKIN IS CLEAN, WARM AND DRY TO TOUCH. IV ACCESS IS PATENT, DRY AND SECURE. BED IS LOCKED IN LOWEST POSITION, CALL LIGHT IN REACH. PATIENT ENDORSED TO [employer] INSTRUCTOR NURSE.
--- NOTE | 2020-07-26 19:20 | NUR ---
RECEIVED BEDSIDE REPORT FROM DAY SHIFT NURSE. PATIENT IS AWAKE RESPIRATION EVEN UNLABORED ON 5L NC O2. NO DISTRESS NOTED. SKIN IS WARM AND DRY. IV PATENT AND INTACT. PLAN OF CARE WAS DISCUSSED. ALL SAFETY MEASURES IN PLACE. BED IS AT LOW POSITION. CALL LIGHT WITHIN REACH. WILL CONTINUE TO MONITOR.
[2020-07-26 20:00] VITALS: BP 106/69
[2020-07-26] MEDS: DOCUSATE SODIUM 100 MG GELCAP PO PRN (20:49)
--- NOTE | 2020-07-26 20:50 | NUR ---
ALL SCHEDULED MEDS WERE GIVEN PER ORDER. PATIENT IS COMPLAINING OF NOT HAVING A BM FOR PAST 3 DAYS. PRN COLACE GIVEN PER ORDER. WILL CONTINUE TO MONITOR.
--- NOTE | 2020-07-26 23:20 | NUR ---
MADE ROUNDS. PATIENT SLEEPING RESPIRATION EVEN UNLABORED ON 4L NC O2. NO DISTRESS NOTED. WILL CONTINUE TO MONITOR.
[2020-07-27] VITALS: BP 104/73
--- NOTE | 2020-07-27 00:05 | NUR ---
VITALS WERE TAKEN.
[2020-07-27] MEDS: NACL 0.9% 1,000 ML IV SCH ×3 (02:15→20:44)
--- NOTE | 2020-07-27 03:20 | NUR ---
MADE ROUNDS PATIENT SLEEPING RESPIRATION EVEN UNLABORED ON 4L NC O2. NO DISTRESS NOTED. WILL CONTINUE TO MONITOR.
[2020-07-27 04:00] VITALS: BP 107/71
--- NOTE | 2020-07-27 05:00 | NUR ---
PROVIDED MORNING CARE
--- NOTE | 2020-07-27 07:25 | NUR ---
ENDORSED PATIENT TO DAY SHIFT NURSE FOR CONTINUITY OF CARE.
--- NOTE | 2020-07-27 07:48 | NUR ---
RECEIVED PATIENT IN BED RESTING COMFORTABLY. PATIENT PRESENTS CALM AND COOPERATIVE, ABLE TO EXPRESS NEEDS. NO C/O PAIN OR DISCOMFORT. RESPIRATIONS ARE NON- LABORED. SKIN IS CLEAN, WARM AND DRY TO TOUCH. IV ACCESS IS PATENT, DRY, SECURE AND INTACT. NO S/SX OF REDNESS OR SWELLING AT SITE. HOB IS ELEVATED AND LOCKED IN THE LOWEST POSITION, CALL LIGHT IN REACH. NURSE WILL CONTINUE CARE AND MONITOR FOR CHANGES IN STATUS.
[2020-07-27] MEDS: PANTOPRAZOLE 40 MG TABEC PO SCH (08:13)
[2020-07-27] MEDS: ASCORBIC ACID 500 MG TAB PO SCH (08:13)
[2020-07-27 10:42] VITALS: BP 118/70
--- NOTE | 2020-07-27 13:05 | NUR ---
ROOM AIR SATURATION 90% CHECKED BY HARPREET KANP
--- NOTE | 2020-07-27 13:12 | NUR ---
PATIENT RESTING COMFORTABLY, NO C/O PAIN OR DISCOMFORT. RESPIRATIONS ARE NON-LABORED. SKIN IS CLEAN WARM AND DRY TO TOUCH. IV ACCESS IS PATENT, DRY AND INTACT. BED IS LOCKED IN LOWEST POSITION, CALL LIGHT IN REACH. NURSE WILL CONTINUE CARE AND MONITOR FOR CHANGES IN STATUS.
--- NOTE | 2020-07-27 13:33 | NUR ---
PATIENT ON ROOM AIR OXYGEN SATURATION LEVEL= 87%-89% READMINISTERED O2 VIA NASAL CANNULA SATURATION 94% ON 6LPM. WILL FOLLOW UP WITH RESPIRATORY TEAM FOR FURTHER EVALUATION.
--- NOTE | 2020-07-27 19:00 | NUR ---
PATIENT RESTING COMFORTABLY, NO C/O PAIN OR DISCOMFORT. RESPIRATIONS ARE NON-LABORED. SKIN IS CLEANM, WARM AND DRY TO TOUCH/ IV ACCESS IS PATENT, DRY AND SECURED, NO S/SX OF REDNESS OR SWELLING OBSERVED. BED IS LOCKED IN LOWEST POSITION, CALL LIGHT IN REACH. PATIENT ENDORSED TO ASSOCIATE DIRECTOR FINANCIAL AID NURSE FOR CONTINUOUS CARE.
--- NOTE | 2020-07-27 19:20 | NUR ---
RECEIVED BEDSIDE REPORT FROM DAY SHIFT NURSE. PATIENT IS AWAKE RESPIRATION EVEN UNLABORED ON 4L NC O2. NO DISTRESS NOTED. SKIN IS WARM AND DRY. IV PATENT AND INTACT. PLAN OF CARE WAS DISCUSSED. ALL SAFETY MEASURES IN PLACE. BED IS AT LOW POSITION. CALL LIGHT WITHIN REACH. WILL CONTINUE TO MONITOR.
[2020-07-27 20:00] VITALS: BP 115/65
--- NOTE | 2020-07-27 20:45 | NUR ---
ALL SCHEDULED MEDS WERE GIVEN PER ORDER. NO ASE NOTED. WILL CONTINUE TO MONITOR.
--- NOTE | 2020-07-27 22:15 | NUR ---
RT TITRATE PATIENT O2 TO 3L NC. NO DISTRESS NOTED. WILL CONTINUE TO MONITOR.
[2020-07-28] VITALS: BP 95/65
--- NOTE | 2020-07-28 00:05 | NUR ---
VITALS WERE TAKEN.
--- NOTE | 2020-07-28 00:45 | NUR ---
CALLED LAB TO FOLLOW UP PATIENTS PLASMA. PER LAB WILL BE READY IN AN HOUR
--- NOTE | 2020-07-28 02:25 | NUR ---
PLASMA TRANSFUSION STARTED.
--- NOTE | 2020-07-28 02:50 | NUR ---
PLASMA TRANSFUSION ENDED. NO TRANSFUSION REACTION NOTED. WILL CONTINUE TO MONITOR
[2020-07-28 04:00] VITALS: BP 98/68
--- NOTE | 2020-07-28 04:30 | NUR ---
VITALS WERE TAKEN.
--- NOTE | 2020-07-28 07:30 | NUR ---
RECEIVED PT ON BED AAOX4, NO SOB NOTED, ON 3LPM AT 94% O2 SATS. NO C/O PAIN AT THIS TIME. INSTRUCTED PT TO CALL FOR ASSISTANCE, CALL LIGHT WITH REACH, VERBALIZED UNDERSTANDING.
--- NOTE | 2020-07-28 07:32 | NUR ---
ENDORSED PATIENT TO DAY SHIFT NURSE FOR CONTINUITY OF CARE
[2020-07-28 08:00] VITALS: BP 103/67
[2020-07-28] MEDS: PANTOPRAZOLE 40 MG TABEC PO SCH (09:40)
[2020-07-28] MEDS: ASCORBIC ACID 500 MG TAB PO SCH (09:41)
[2020-07-28 12:00] VITALS: BP 97/59
--- NOTE | 2020-07-28 12:00 | NUR ---
TITRATED PT'S OXYGEN TO 1LPM, PT'S SATS IS AT 91%. ENCOURAGED THE USE OF INCENTIVE SPIROMETER, PT VERBALIZED UNDERSTANDING.
[2020-07-28 16:00] VITALS: BP 103/67
--- NOTE | 2020-07-28 16:00 | NUR ---
PT'S O2 SATS ON ROOM AIR IS BETWEEN 93-95% AT REST. ENCOURAGED THE USE OF IS.
--- NOTE | 2020-07-28 18:45 | NUR ---
PT'S O2 SATS ON AMBULATION IS BETWEEN 90-92%, NO SOB NOTED.
--- NOTE | 2020-07-28 19:00 | NUR ---
PT'S CALLED STATED THAT PT DOES NOT WANT TO GO HOME WITHOUT HOME OXYGEN IN CASE HE IS SHORT OF BREATH AT HOME. PER , THEY REACHED OUT TO THEIR PCP AND THEIR PCP DOES NOT WANT THE PT TO GO HOME WITH OXYGEN NEEDED AT HOME. PER THEY WILL ASK TOMORROW IF THEIR PCP CAN HELP THEM GET OXYGEN.
--- NOTE | 2020-07-28 19:04 | NUR ---
PT AWAKEN ON THE PHONE. ON ROOM AIR, NO SOB NOTED. NO SIGNS OF PAIN AT THIS TIME. WILL ENDORSE TO NEXT SHIFT NURSE FOR CONTINUITY OF CARE.
--- NOTE | 2020-07-28 19:05 | NUR ---
RECEIVED BEDSIDE REPORT FROM DAY SHIFT NURSE FOR CONTINUITY OF CARE. PT IS AWAKE AND ALERT. LAYING IN SEMI FOWLERS POSITION. ON RA WITH BREATHING UNLABORED. BOWEL SOUNDS PRESENT. SKIN IS WARM, DRY, AND INTACT. IV IN THE LEFT HAND SALINE LOCKED. PT IS AMBULATORY, INDEPENDENTLY. DROPLET PRECAUTIONS IN PLACE.PLAN OF CARE DISCUSSED. PT IS STABLE.
[2020-07-28 20:00] VITALS: BP 95/57
--- NOTE | 2020-07-28 21:30 | NUR ---
PT IS AWAKE AND ALERT. LAYING IN BED. BREATHING IS UNLABORED. O2 SAT IS 93% ON RA. PT REQUESTED LINENS TO BE CHANGED AND GRINDER OPERATOR AUTOMATIC STATED SHE WOULD CHANGE THEM SOON.
--- NOTE | 2020-07-28 23:30 | NUR ---
PT IS STABLE. SLEEPING COMFORTABLY IN SEMI FOWLERS POSITION. O2 SAT IS 94%. CHEST RISE AND FALL IS SYMMETRICAL. NO DISTRESS NOTED.
[2020-07-29] VITALS: BP 93/61
--- NOTE | 2020-07-29 01:30 | NUR ---
ROUNDED ON PT. HE IS SLEEPING. NO RESPIRATORY DISTRESS NOTED. BELONGINGS ARE WITHIN REACH. CELL PHONE IN REACH. URINAL IS AT BEDSIDE AND BED IS IN THE LOWEST POSITION. PT IS STABLE.
--- NOTE | 2020-07-29 03:30 | NUR ---
PT IS ASLEEP. ON RA WITH BREATHING UNLABORED. O2 SAT IS 95%. PT IS TOLERATING RA WELL. PT IS STABLE.
[2020-07-29 04:00] VITALS: BP 99/62
--- NOTE | 2020-07-29 05:30 | NUR ---
PT IS AWAKE AND USING THE URINAL. PT IS STABLE. BREATHING IS UNLABORED. O2 SAT IS 95% ON RA. PT IS TOLERATING ROOM AIR WELL. NO DISTRESS AT THIS TIME.
--- NOTE | 2020-07-29 07:05 | NUR ---
ENDORSED PT TO DAY SHIFT NURSE FOR CONTINUITY OF CARE. PT IS STABLE AT THIS TIME. BREATHING IS UNLABORED. PLAN OF CARE DISCUSSED.
--- NOTE | 2020-07-29 07:10 | NUR ---
HANDOFF REPORT RECEIVED FROM TRAILER MECHANIC RN. POC DISCUSSED. PT IS ALERT, FOLLOW COMMAND. DENIES DISCOMFORT. NO SOB NOTED. ON ROOM AIR. DENIES CHEST PAIN. NO ACTIVE BLEEDING. AFEBRILE. PT MADE AWARE OF THE DISCHARGE ORDER. RISKS AND BENEFITS WERE DISCUSSED. PT NEEDS REINFORCEMENT.
[2020-07-29 08:00] VITALS: BP 94/64
[2020-07-29] MEDS: ASCORBIC ACID 500 MG TAB PO SCH (09:37)
[2020-07-29] MEDS: PANTOPRAZOLE 40 MG TABEC PO SCH (09:37)
[2020-07-29 12:00] VITALS: BP 96/62
--- NOTE | 2020-07-29 12:00 | NUR ---
NO CHANGE OF CONDITION. PT IS RESTING AND CALM. NO S/S OF DISCOMFORT.
--- NOTE | 2020-07-29 12:30 | NUR ---
SPOKE TO PATIENT AND PT'S DAUGHTER. REINFORCED EDUCATION ON DISCHARGE ORDER. FAMILY REFUSED TO LET PATIENT GO HOME D/T O2 CONCERNS. TEACHING AND EDUCATION PROVIDED ON RESPIRATORY PROBLEM. FAMILY AND PT NEEDS REINFORCEMENT.
--- NOTE | 2020-07-29 12:45 | NUR ---
HOSPITAL DIRECTOR AND NUTRITION SERVICES MANAGER AT BEDSIDE TO FURTHER DISCUSSED ON DISCHARGE ORDER. WILL FOLLOW UP.
--- NOTE | 2020-07-29 15:15 | NUR ---
DISCHARGED PT WITH NO S/S OF DISTRESS. ACCOMPANIED PT TO WHEELCHAIR. PT DENIES SOB. ASSISTED PT TO PLACE PERSONAL O2 VIA NC.
== END 2020-07-29 15:25 | disposition home or self-care (01) | DRG 871 ==
LOC: MED 11:20 → MTU 07-22 02:03
PROVIDERS: ADMIT Family Medicine; ATTEND Family Medicine
PROC: XW033E5 Introduction of Remdesivir Anti-infective into Peripheral Vein, Percutaneous Approach, New Technology Group 5 (ICD-10-PCS; 2020-07-22)
PROC: XW13325 Transfusion of Convalescent Plasma (Nonautologous) into Peripheral Vein, Percutaneous Approach, New Technology Group 5 (ICD-10-PCS; principal; 2020-07-28)
DX: A41.9 Sepsis, unspecified organism (principal); U07.1 COVID-19; E43 Unspecified severe protein-calorie malnutrition; J12.82 Pneumonia due to coronavirus disease 2019; J96.01 Acute respiratory failure with hypoxia; D68.59 Other primary thrombophilia; E87.6 Hypokalemia; R73.03 Prediabetes; E86.0 Dehydration; Z68.27 Body mass index [BMI] 27.0-27.9, adult
CPT/HCPCS: 36415; 71045; 80053; 80305; 81001; 82150; 83036; 83615; 83690; 83735; 83880; 84100; 84436; 84439; 84443; 84479; 84484; 85025; 85379; 85610; 85651; 85730; 86140; 86886; 86900; 86901; 87040; 87081; 93005; 96374; 99285; J0696; J1644; J1885; J7030; J7060; P9017